=== PATIENT | male | born 1940 | race Caucasian/White ===

== ENCOUNTER 2018-07-05 12:33 | Observation (INO) | payer MEDICARE ==
[~2018-07-05] VITALS: Ht 172.7 cm; Wt 112.3 kg
[2018-07-05 13:28] LABS: BASOPHILS % (AUTO) 0.9 % (0.0-5.0); EOSINOPHILS % (AUTO) 9.8 % (0.0-8.0); HEMATOCRIT 36.1 % (42-54); MEAN CORPUSCULAR HEMOGLOBIN 32.2 pg (27.0-33.0); MEAN CORPUSCULAR HGB CONC 34.9 g/dL (32.0-36.0); MEAN CORPUSCULAR VOLUME 92.3 fL (79-99); MONOCYTES % (AUTO) 7.5 % (3.0-13.0); NEUTROPHILS % (AUTO) 72.8 % (40.0-77.0); PLATELET COUNT (AUTO) 176 K/uL (130-400); RED BLOOD CELL COUNT(AUTO) 3.91 MIL/uL (4.50-6.20); RED CELL DISTRIBUTION WIDTH 12.5 % (11.0-15.5); WHITE BLOOD COUNT (AUTO) 6.2 K/uL (4.8-10.8)
[2018-07-05 13:29] LABS: CREATININE 0.9 mg/dL (0.5-1.5); POTASSIUM 4.1 mmol/L (3.5-5.1)
[2018-07-05 13:34] LABS: ALBUMIN 3.3 g/dL (3.5-5.0); BILIRUBIN,TOTAL 0.7 mg/dL (0.2-1.0); MAGNESIUM 1.9 mg/dL (1.80-2.40); TOTAL PROTEIN, SERUM 6.5 g/dL (6.0-8.3)
[2018-07-05 13:55] LABS: B-TYPE NATRIURETIC PEPTIDE 63 pg/mL (0-100)
[2018-07-05] MEDS ORDERED: SODIUM CHLORIDE 0.9% 1000ML 1,000 ML IV SCH (15:24)
[2018-07-05] MEDS ORDERED: HYDRALAZINE HCL 20 MG/ML VIAL IV PRN (15:30)
[2018-07-05] MEDS ORDERED: ONDANSETRON HCL 4 MG/2 ML VIAL IV PRN (15:30)
[2018-07-05] MEDS ORDERED: ACETAMINOPHEN 325 MG TAB PO PRN ×2 (15:30)
[2018-07-05] MEDS ORDERED: LACTULOSE 20 GM/30 ML UDCUP PO PRN (15:30)
[2018-07-05 16:30] LABS: CREATINE KINASE, TOTAL 236 U/L (21-232); MYOGLOBIN 104 ng/mL (10-92); PHOSPHORUS 4.5 mg/dL (2.5-4.9); THYROID STIMULATING HORMONE 1.68 uIU/mL (0.36-3.74); TROPONIN I < 0.04 ng/mL (0.00-0.06)
[2018-07-05] MEDS ORDERED: ENOXAPARIN SODIUM 40 MG/0.4 ML SYRINGE SQ ONE (18:18)
[2018-07-05 19:59] VITALS: BP 148/78
[2018-07-05] MEDS: FAMOTIDINE 20MG TAB 20 MG TAB PO SCH (20:58)
[2018-07-06] VITALS: BP 129/69
[2018-07-06 00:49] LABS: CREATINE KINASE, TOTAL 171 U/L (21-232); MYOGLOBIN 81 ng/mL (10-92); TROPONIN I < 0.04 ng/mL (0.00-0.06)
[2018-07-06] MEDS ORDERED: ACETAMINOPHEN 325 MG TAB PO PRN (02:00)
[2018-07-06] MEDS ORDERED: ACETAMINOPHEN 325 MG TAB ONE (03:04)
[2018-07-06 03:07] LABS: BILIRUBIN,URINE Negative (NEGATIVE); COLOR,URINE Yellow (YELLOW); GLUCOSE, URINE (UA) Negative (NEGATIVE); KETONES,URINE Negative (NEGATIVE); LEUKOCYTE ESTERASE ,URINE Negative (NEGATIVE); NITRATE,URINE Negative (NEGATIVE); OCCULT BLOOD,URINE Negative (NEGATIVE); PH,URINE 6.5 (5.0-8.0); PROTEIN,URINE Negative (NEGATIVE); UROBILINOGEN,URINE 0.2 mg/dL (0.2-1.0)
[2018-07-06 03:14] LABS: APPEARANCE,URINE CLEAR (CLEAR)
[2018-07-06 08:00] VITALS: BP 140/68
--- NOTE | 2018-07-06 08:15 | NUR ---
AM ASSESSMENT PT LAYING IN BED, HOB ELEVATED 30 DEGREES, WATCHING. A/O X 3. NO SOB. NO DISTRESS NOTED. DENIES CHEST PAIN OR DISCOMFORT. DENIES PALPITATIONS. DENIES DIZZINESS AND/OR LIGHT HEADEDNESS. TELE: SR 60s. EPISODE OF BRADYCARDIA, 40s, HS. DENIES N/V AND/OR DIARRHEA. UP W/ASSISTANCE. INSTRUCTED TO CALL FOR ASSISTANCE. CALL CYRUS W/IN REACH.
[2018-07-06 08:23] LABS: CREATINE KINASE, TOTAL 173 U/L (21-232); MYOGLOBIN 90 ng/mL (10-92); TROPONIN I < 0.04 ng/mL (0.00-0.06)
[2018-07-06] MEDS: FAMOTIDINE 20MG TAB 20 MG TAB PO SCH ×2 (08:57→21:47)
[2018-07-06] MEDS ORDERED: ENOXAPARIN SODIUM 40 MG/0.4 ML SYRINGE SQ SCH (09:00)
[2018-07-06 11:50] VITALS: BP 135/80
[2018-07-06] MEDS ORDERED: TAMS0.4C32 PO (16:23)
[2018-07-06] MEDS ORDERED: OMEP20CA10 PO (16:23)
[2018-07-06] MEDS ORDERED: DUTA0.5C17 PO (16:23)
[2018-07-06] MEDS ORDERED: LISI10TA7 PO (16:23)
[2018-07-06] MEDS ORDERED: PRAM0.754 PO (16:23)
[2018-07-06] MEDS ORDERED: ASPI-1181 PO (16:23)
[2018-07-06] MEDS ORDERED: PIND5 PO (16:23)
[2018-07-06] MEDS ORDERED: NABU750T2 PO (16:23)
[2018-07-06] MEDS ORDERED: ATOR40TA71 PO (16:23)
[2018-07-06 16:43] VITALS: BP 149/87
--- NOTE | 2018-07-06 18:00 | NUR ---
MD VISIT/CARDIOLOGY CONSULT DR DIMAS IN TO SEE PT. @ BEDSIDE. PLAN OF CARE REVIEWED & DISCUSSED W/PT & .
[2018-07-06 19:00] VITALS: BP 157/85
[2018-07-06] MEDS ORDERED: PRAMIPEXOLE DI-HCL 0.25 MG TABLET PO SCH (21:00)
[2018-07-06] MEDS ORDERED: NON-FORMULARY MEDICATION 1 EACH (Omeprazole 20 MG) PO SCH (21:00)
[2018-07-06] MEDS ORDERED: PINDOLOL 5 MG TAB PO SCH (21:00)
[2018-07-06] MEDS ORDERED: ATORVASTATIN CALCIUM 40 MG TABLET PO SCH (21:00)
--- NOTE | 2018-07-06 21:40 | NUR ---
REMINDED PATIENT NPO AFTER MIDNIGHT, LOOP RECORDER PLACEMENT IN A.M. PATIENT VERBALIZED UNDERSTANDING.
[2018-07-06] MEDS: TAMSULOSIN HCL 0.4 MG CAP.ER.24H PO SCH (21:47)
[2018-07-06] MEDS: PINDOLOL 5 MG PO SCH (22:00)
[2018-07-06 23:00] VITALS: BP 135/81
[2018-07-07] VITALS (7 sets, daily range): BP systolic 122–176; BP diastolic 59–133
--- NOTE | 2018-07-07 05:30 | NUR ---
OBTAINED CONSENT FOR PROCEDURE - SIGNED BY PATIENT.
[2018-07-07 05:42] LABS: INR 0.94 (0.85-1.15); PARTIAL THROMBOPLASTIN TIME 27.6 SEC (26.3-35.5); PROTHROMBIN TIME 9.9 SEC (9.6-11.6)
[2018-07-07] MEDS ORDERED: BUPIVACAINE/PF 0.25% 10ML VIAL IJ ONE ×2 (07:30→07:34)
[2018-07-07] MEDS ORDERED: LIDOCAINE HCL 1% MDV 50ML VIAL ONE (07:30)
--- NOTE | 2018-07-07 07:30 | NUR ---
AM ASSESSMENT PT LAYING IN BED, HOB ELEVATED 30 DEGREES, RESTING. @BEDSIDE. A/O X 3. NO SOB. NO DISTRESS NOTED. DENIES CHEST PAIN OR DISCOMFORT. DENIES PALPITATIONS. DENIES LIGHT HEADEDNESS AND/OR DIZZINESS. TELE: SR 70s. DENIES N/V AND/OR DIARRHEA. NPO STATUS REINFORCED. PT TO HAVE LOOP RECORDER INSERTED TODAY BY DR DIMAS. UP W/ASSISTANCE. INSTRUCTED TO CALL FOR ASSISTANCE. CALL CYRUS W/IN REACH.
--- NOTE | 2018-07-07 07:50 | NUR ---
STATUS PT TAKEN TO [facility] VIA BED. TELE MAXIMINO REMOVED.
[2018-07-07] MEDS ORDERED: ASPIRIN 81MG TAB.CHEW PO SCH (09:00)
[2018-07-07] MEDS ORDERED: NABUMETONE 750 MG PO SCH (09:00)
[2018-07-07] MEDS ORDERED: LISINOPRIL 10 MG TABLET PO SCH (09:00)
[2018-07-07] MEDS ORDERED: ACETAMINOPHEN 325 MG TAB PO PRN (09:15)
--- NOTE | 2018-07-07 09:30 | NUR ---
STATUS PT RECEIVED FROM AUDIO VISUAL AIDE S/P LOOP RECORDER INSERTION. DSG TO LT CHEST; SM TELFA & OPSITE. DRY & INTACT. NO BLEEDING, NO DRAINAGE NOTED. DENIES INCISIONAL PAIN. MORNING MEDS TO BE GIVEN. @ BEDSIDE.
[2018-07-07] MEDS: FAMOTIDINE 20MG TAB 20 MG TAB PO SCH (09:38)
[2018-07-07] MEDS: TAMSULOSIN HCL 0.4 MG CAP.ER.24H PO SCH (09:38)
[2018-07-07] MEDS: PINDOLOL 5 MG PO SCH (09:40)
--- NOTE | 2018-07-07 14:20 | NUR ---
DISCHARGE VERBAL & WRITTEN DISCHARGE INSTRUCTIONS REVIEWED & GIVEN TO PT & . QUESTIONS ENCOURAGED & CLARIFIED. PROPER CARE & ACTIVITY AFTER LOOP RECORDER INSERTION REVIEWED & REINFORCED. PT TO CONTINUED HOME MEDICATIONS. NO NEW MEDICATIONS PRESCRIBED. IV DC'D. TELE MAXIMINO REMOVED. PT & TO GATHER PERSONAL BELONGINGS. WILL NOTIFY STAFF WHEN FRIEND ARRIVES TO TAKE THEM HOME.
--- NOTE | 2018-07-07 14:49 | NUR ---
DISCHARGE FRIEND HERE TO TAKE PT HOME. PT TAKEN TO PRIVATE VEHICLE HAYDEN WC BY Uyen PIEDRA PCP, ACCOMPANIED BY SPOUSE. NO DISTRESS NOTED.
== END 2018-07-07 14:50 | disposition home or self-care (01) ==
LOC: EDH 12:33 → EDHIP 15:24 → 2DH 18:08
PROVIDERS: ADMIT Internal Medicine; ATTEND Internal Medicine
DX: I63.9 Cerebral infarction, unspecified (principal); R55 Syncope and collapse; E78.5 Hyperlipidemia, unspecified; G25.81 Restless legs syndrome; G47.33 Obstructive sleep apnea (adult) (pediatric); I11.9 Hypertensive heart disease without heart failure; J44.9 Chronic obstructive pulmonary disease, unspecified; K21.9 Gastro-esophageal reflux disease without esophagitis; Z85.46 Personal history of malignant neoplasm of prostate; Z87.891 Personal history of nicotine dependence; Z96.653 Presence of artificial knee joint, bilateral; Z88.5 Allergy status to narcotic agent; Z88.8 Allergy status to other drugs, medicaments and biological substances
CPT/HCPCS: 33285; 36415 ×3; 80053; 81003; 82550 ×4; 83735 ×2; 83874 ×3; 83880; 84100; 84443 ×2; 84484 ×4; 85025; 85610; 85730; 93005 ×3; 96360; 96361 ×2; 96372; 99284; A4649; C1764; G0378 ×47; J1650 ×3; J3490 ×3; J7030

== ENCOUNTER 2022-04-28 13:40 | Emergency (ER) | payer MEDICARE ==
[~2022-04-28] VITALS: Ht 172.7 cm; Wt 108.9 kg
[~2022-04-28 13:40] MED LIST: ACET-66 PO; ASPI-1443 PO; ATOR40TA71 PO; DUTA0.5C37 PO; LISI10TA24 PO; MULT-1258 PO; NABU-143 PO; OMEP20CA12 PO; PIND5 PO; PRAM0.754 PO; TAMS0.4C32 PO
[2022-04-28 14:23] LABS: APPEARANCE,URINE CLEAR (CLEAR); BILIRUBIN,URINE NEGATIVE (NEGATIVE); COLOR,URINE COLORLESS (YELLOW); GLUCOSE, URINE (UA) NEGATIVE (NEGATIVE); KETONES,URINE NEGATIVE (NEGATIVE); LEUKOCYTE ESTERASE ,URINE NEGATIVE Leu/uL (NEGATIVE); NITRATE,URINE NEGATIVE (NEGATIVE); OCCULT BLOOD,URINE NEGATIVE (NEGATIVE); PROTEIN,URINE NEGATIVE (NEGATIVE); UROBILINOGEN,URINE 0.2 mg/dL (0.2-1.0)
[2022-04-28 15:21] LABS: BASOPHILS % (AUTO) 0.6 % (0.0-5.0); EOSINOPHILS % (AUTO) 2.4 % (0.0-8.0); HEMATOCRIT 37.3 % (42-54); LYMPHOCYTES % (AUTO) 10.6 % (21.0-51.0); MEAN CORPUSCULAR HEMOGLOBIN 31.4 pg (27.0-33.0); MEAN CORPUSCULAR HGB CONC 34.3 g/dL (32.0-36.0); MEAN CORPUSCULAR VOLUME 91.4 fL (79-99); MONOCYTES % (AUTO) 6.7 % (3.0-13.0); NEUTROPHILS % (AUTO) 79.2 % (40.0-77.0); PLATELET COUNT (AUTO) 189 K/uL (130-400); RED BLOOD CELL COUNT(AUTO) 4.08 MIL/uL (4.50-6.20); RED CELL DISTRIBUTION WIDTH 12.1 % (11.0-15.5); WHITE BLOOD COUNT (AUTO) 8.9 K/uL (4.8-10.8)
[2022-04-28 15:33] LABS: CREATININE 0.8 mg/dL (0.5-1.5); POTASSIUM 4.2 mmol/L (3.5-5.1)
[2022-04-28 15:38] LABS: ALBUMIN 3.4 g/dL (3.5-5.0); TOTAL PROTEIN, SERUM 6.6 g/dL (6.0-8.3)
[2022-04-28] MEDS ORDERED: 0.9%NACL 1000ML 1,000 ML IV ONE (17:00)
[2022-04-28 17:47] VITALS: BP 154/82
== END 2022-04-28 17:50 | disposition home or self-care (01) ==
LOC: EDH 13:40
DX: J32.9 Chronic sinusitis, unspecified (principal); E86.0 Dehydration; E78.00 Pure hypercholesterolemia, unspecified; I51.9 Heart disease, unspecified; T50.905A Adverse effect of unspecified drugs, medicaments and biological substances, initial encounter; M79.89 Other specified soft tissue disorders; I48.91 Unspecified atrial fibrillation; Z79.899 Other long term (current) drug therapy; Z79.82 Long term (current) use of aspirin; Z88.5 Allergy status to narcotic agent; Z90.49 Acquired absence of other specified parts of digestive tract; Z95.810 Presence of automatic (implantable) cardiac defibrillator; Z88.8 Allergy status to other drugs, medicaments and biological substances; Y92.89 Other specified places as the place of occurrence of the external cause
CPT/HCPCS: 36415; 70450; 71045; 73630; 80053; 81003; 84484; 85025; 93005